=== PATIENT | male | born 1985 | race Caucasian/White ===

== ENCOUNTER 2018-05-16 08:04 | Emergency (ER) | payer SELFPAY ==
--- NOTE | 2018-05-16 08:06 | ED_ITS ---
HPI - Male Genitourinary General Chief complaint: Urogenital-Male Stated complaint: SWOLLEN TESTICLE Time Seen by Provider: 05/16/18 08:06 Source: patient Mode of arrival: ambulatory Limitations: no limitations History of Present Illness HPI Narrative: Patient is a 32-year-old male here for evaluation of swelling and tenderness of his right testicle. Patient states that he started noticing the symptoms approximately 48 hr ago. No fevers. No trauma. No problems urinating. He states that he did have some blood in his ejaculate yesterday. States that he has a dull pain in his right testicle. No prior surgeries. He is circumcised. No history of sexually transmitted infections. No history of urinary tract infections. No back pain. He does stand at his job but no running or jumping recently. Review of Systems Constitutional Denies fatigue and Denies fever(s) Gastrointestinal Gastrointestinal: Denies abdominal pain, Denies nausea and Denies vomiting Genitourinary Denies difficulty urinating, Denies erectile dysfunction, Denies genital lesions , Reports genital pain, Denies dysuria, Denies scrotal swelling, Reports testicular pain, Denies urinary frequency and Denies urinary urgency Musculoskeletal Denies myalgias and Denies arthralgias Integumentary/Breasts Denies lesions and Denies rash Endocrine Denies fatigue Hematologic/Lymphatic Denies easy bleeding and Denies easy bruising [facility] Medical History Healthy adult (Acute) Male circumcision (Acute) Surgical History No pertinent past surgical history (Acute) Exam Initial Vital Signs Initial Vital Signs: Vital Signs Temperature 99.4 F 05/16/18 08:10 Pulse Rate 100 H 05/16/18 08:10 Respiratory Rate 14 05/16/18 08:10 Blood Pressure 164/100 H 05/16/18 08:10 Const General: cooperative, healthy appearing, comfortable, well developed, well groomed and No acute distress Orientation: alert, awake and oriented x3 HENMT Head: normal to inspection and normocephalic GI Inspection: non-distended Palpation: soft, No firm and No tender Penis: normal penis Meatus: meatus normal Scrotum: scrotum normal Other: Left testicle unremarkable Right testicle is enlarged compared to left. Firm. No defined masses. No tenderness to the epididymis. No inguinal hernia Cremaster reflex positive bilateral Normal testicular lie bilateral Skin Lesions: no lesions Rashes: no rashes Neuro General: alert, awake and oriented x3 Psych Appearance: grossly normal and well kempt Course Orders Ordered: ED Orders 05/16/18 08:07 US scrotum Stat 05/16/18 08:20 Urinalysis and Microscopic Stat Urine Chlamydia Gonorrhea PCR Stat Vital Signs - 8 hr 05/16/18 08:10 Temperature 99.4 F Pulse Rate 100 H Respiratory Rate 14 Blood Pressure 164/100 H MDM - Male Genitourinary Lab Data Attestation: I reviewed the patient's lab results. Lab Results 05/16/18 05/16/18 Range/Units 08:20 08:20 Urine Color Yellow Urine Appearance Clear Urine pH 5.0 (4.5-8.0) Ur Specific Donaldson >=1.030 H (1.000-1.035) Urine Protein Trace H (Negative) Urine Glucose (UA) Negative (Normal) g/dL Urine Ketones Trace H (NEGATIVE) Urine Occult Blood Negative (Negative) Urine Nitrate Negative (Negative) Urine Bilirubin Negative (NEGATIVE) Urine Urobilinogen 1.0 (0.2) E.U./dL Ur Leukocyte Esterase Negative (NEGATIVE) Urine RBC 0-1/hpf (0-5/HPF) Urine WBC 0-1/hpf (0-5/HPF) Ur Squamous Epith Cells 1-5 /hpf Urine Bacteria None seen (None) Urine Mucus 1+ H (Negative) Ur Culture Indicated? Cult not indicated Micro UA Comment Not Reportable Ur Chlamydia DNA (PCR) Not detected N gonorrhoeae DNA (PCR) Not detected Imaging Data Scrotal ultrasound: Radiologist's impression: PROCEDURE: US SCROTUM INDICATIONS: swollen testicle concern for torsion TECHNIQUE: Real-time scanning was performed of the scrotum and testicles, with image documentation. Color and pulse Doppler interrogation was performed of both testicles. COMPARISON: None. FINDINGS: Right: Testicle is normal in size at 3.4 x 1.7 x 2.3 cm, and homogenous in echotexture. Epididymis is normal in overall size and morphology. Increased vascularity is noted within the epididymis. No varicoceles. Hydrocele is present. Overlying scrotal skin is normal in thickness. There is incidental note of an echogenic mass measuring 27 x 24 x 31 cm within the right scrotum. Left: Testicle is normal in size at 3.2 x 1.9 x 2.0 cm, and homogeneous in echotexture. Epididymis is normal in overall size and morphology. No hydrocele. Varicocele is present. Overlying scrotal skin is normal in thickness. Doppler: Color and pulse Doppler demonstrate normal and symmetric arterial flow in both testicles. IMPRESSION: 1. Increased vascularity within the right epididymis suggestive of epididymitis. 2. Right hydrocele and left varicocele. 3. Echogenic mass within the right scrotum as above. Overall appearance is suggestive of lipoma. However, recommend continued interval followup. Dictated by: Valarie Meléndez M.D. on 05/16/2018 at 10:26 Approved by: Valarie Meléndez M.D. on 05/16/2018 at 10:29 MDM Narrative Medical decision making narrative: Ultrasound is consistent with epididymitis. His GC and Chlamydia PCR were negative here in the emergency department. Patient states that he is not concerned about STDs. We also discussed the other findings consistent with a lipoma. He was instructed needed to contact his primary care doctor for follow up of this. We did discuss care instructions with regard to epididymitis. We discussed return precautions. He expressed understanding and agreement with plan. Discharge Plan Departure Patient Disposition: Home Clinical Impression: Epididymitis Instructions: DI for Epididymitis Activity Restrictions/Additional Instructions: Make sure you wear supportive clothing like we discussed. Take anti- inflammatories like we discussed. Contact your primary care doctor for a follow -up. Return to the emergency department for any new or worsening symptoms
[2018-05-16 08:10] VITALS: BP 164/100; PULSE 100; RESP 14; TEMP 37.4
[2018-05-16 08:28] LABS: Bacteria Urine None Seen
[2018-05-16 08:29] LABS: Appearance Urine UA CLEAR; Bilirubin Urine UA NEGATIVE (NEGATIVE); Color Urine UA YELLOW; Glucose Urine UA NEGATIVE (Normal); Ketones Urine UA TRACE (NEGATIVE); Leukocyte Esterase Urine UA NEGATIVE (NEGATIVE); Nitrite Urine UA NEGATIVE (Negative); Occult Blood Urine UA NEGATIVE (Negative); Protein Urine UA TRACE (Negative); Specific Gravity Urine UA >=1.030 (1.000-1.035)
[2018-05-16 08:33] LABS: RBC Urine 0-1/HPF (0-5/HPF); Squamous Epithelial Cell Urine 1-5 /HPF; WBC Urine 0-1/HPF (0-5/HPF)
[2018-05-16 08:34] LABS: Culture Indicated Urine Cult Not Indicated; Mucus Urine 1+ (Negative)
[2018-05-16 09:57] LABS: Urine N gonorrhoeae NOT DETECTED
[2018-05-16 10:06] LABS: Urine Chlamydia NOT DETECTED
== END 2018-05-16 10:48 | disposition home or self-care (01) ==
PROVIDERS: Emergency Provider Emergency Medicine
DX: N45.1 Epididymitis (principal)
CPT/HCPCS: 76870; 81001; 87491; 87591; 99282; 99284

== ENCOUNTER → 2020-02-04 14:05 | Outpatient (CLI) | payer OTHER, SELFPAY ==
[2020-02-05 09:24] LABS: COVID19 Sendout Not Detected (Not Detect)
== END ==
PROVIDERS: Visit Provider Physician Assistant
DX: Z11.59 Encounter for screening for other viral diseases (principal)
CPT/HCPCS: 87635